=== PATIENT | female | born 1990 | race African-American/Black ===

== ENCOUNTER 2018-09-28 16:59 | Emergency (ER) | payer MEDICAID ==
[~2018-09-28] VITALS: Ht 162.6 cm; Wt 84.8 kg
[2018-09-28 17:20] VITALS: BP 115/73
[2018-09-28] MEDS: ALBUTEROL SULF 2.5 MG/0.5ML(0.5%) NEB SOLN NEB ONE (19:15)
[2018-09-28] MEDS: IPRATROPIUM BROM 0.5 MG/2.5ML INH SOL NEB ONE (19:15)
== END 2018-09-28 19:50 | disposition home or self-care (01) ==
LOC: ER 16:59
DX: J40 Bronchitis, not specified as acute or chronic (principal); M54.9 Dorsalgia, unspecified; R11.2 Nausea with vomiting, unspecified; R63.0 Anorexia; Z68.32 Body mass index [BMI] 32.0-32.9, adult
CPT/HCPCS: 71045; 94640; 99283; J7611; J7644

== ENCOUNTER 2018-11-08 03:55 | Emergency (ER) | payer MEDICAID ==
[~2018-11-08] VITALS: Ht 160 cm; Wt 81.6 kg
[2018-11-08 05:06] LABS: Urine Bacteria NONE SEEN /hpf (None Seen); Urine Blood Negative /uL (Negative); Urine Mucus FEW (None Seen); Urine Specific Gravity 1.023 (1.001-1.035); Urine WBC 16 /hpf (0 - 5)
[2018-11-08 05:31] LABS: Basophils # (auto) 0.1 uL; Basophils % (auto) 0.5 % (0.0-2.0); Eosinophils # (auto) 0.1 uL; Eosinophils % (auto) 0.8 % (0.0-7.0); Hematocrit 42.8 % (36.0-46.0); Hemoglobin 14.8 g/dL (12.2-16.2); Lymphocytes # (auto) 0.7 uL; Lymphocytes % (auto) 6.1 % (10.0-50.0); Mean Corpuscular Hemoglobin 30.5 pg (28.0-32.0); Mean Corpuscular Hgb Conc. 34.6 g/dL (32.0-36.0); Mean Corpuscular Volume 88.1 fL (80.0-100.0); Monocytes # (auto) 0.7 uL; Monocytes % (auto) 6.5 % (0.0-12.0); Neutrophils # (auto) 9.8 uL; Neutrophils % (auto) 86.1 % (37.0-80.0); Platelet Count (auto) 303 10^3/uL (140-450); Red Blood Cells 4.86 10^6/uL (4.0-5.20); Red Cell Distribution Width 13.9 % (11.8-14.3); White Blood Cell 11.4 10^3/uL (4.4-10.8)
[2018-11-08 05:38] LABS: Albumin 4.2 g/dL (3.4-5.0); Amylase 33 U/L (25-115); Anion Gap 8 (5-15); Blood Urea Nitrogen 7 mg/dL (7-18); Calcium 9.3 mg/dL (8.5-10.1); Carbon Dioxide 25 mmol/L (21-32); Chloride 103 mmol/L (98-107); Glucose 100 mg/dL (74-106); Lipase 63 U/L (73-393); Magnesium 1.9 mg/dL (1.6-2.6); Potassium 3.8 mmol/L (3.5-5.1); Sodium 136 mmol/L (136-145)
[2018-11-08 05:42] LABS: INR 0.95 (0.9-1.15); Partial Thromboplastin Time 29.1 sec (23.78-33.04); Prothrombin Time 10.2 sec (9.27-12.13)
[2018-11-08 05:43] LABS: Alanine Aminotransferase 19 U/L (13-56); Alkaline Phosphatase 66 U/L (45-117); Aspartate Aminotransferase 13 U/L (15-37); BUN/Creatinine Ratio 8.2; Bilirubin, Total 0.6 mg/dL (0.2-1.0); GFR African American > 60 mL/min; GFR Non-African American > 60 mL/min; Total Protein 8.6 g/dL (6.4-8.2)
[2018-11-08] MEDS ORDERED: MORPHINE SULFATE 10 MG/ML INJ 1ML SDV IV ONE (05:45)
[2018-11-08] MEDS ORDERED: ONDANSETRON HCL 4 MG/2 ML VIAL IV ONE (05:45)
[2018-11-08] MEDS ORDERED: SODIUM CHLORIDE 0.9% 1,000 ML IV ONE (07:44)
[2018-11-08] MEDS ORDERED: AZITHROMYCIN 500MG/ 250ML 250 ML IV ONE (07:45)
[2018-11-08] MEDS ORDERED: cefTRIAXone 1GM/50ML D5W 50 ML IV ONE (07:45)
[2018-11-08] MEDS ORDERED: KETOROLAC TROMETH 30 MG/ML 1ML VIAL IV ONE (08:00)
[2018-11-08] MEDS ORDERED: methylPREDNISolone SOD SUCC 125 MG/2 ML VL IV ONE (10:00)
[2018-11-08] MEDS ORDERED: ALBUTEROL SULF 2.5 MG/0.5ML(0.5%) NEB SOLN NEB ONE (10:00)
[2018-11-08] MEDS ORDERED: IPRATROPIUM BROM 0.5 MG/2.5ML INH SOL NEB ONE (10:00)
[2018-11-08 12:44] VITALS: BP 102/65
== END 2018-11-08 12:53 | disposition home or self-care (01) ==
LOC: ER 03:58
DX: J40 Bronchitis, not specified as acute or chronic (principal); N39.0 Urinary tract infection, site not specified
CPT/HCPCS: 36415; 71045; 80053; 81001; 81025; 82150; 83690; 83735; 85025; 85610; 85730; 87040; 94640; 96365; 96366; 96368; 96375; 99284; J0456; J0696; J1885; J2270; J2405; J2930; J7030; J7611; J7644

== ENCOUNTER 2018-11-09 09:36 | Inpatient (IN) | payer MEDICAID ==
[~2018-11-09] VITALS: Ht 160 cm; Wt 83.1 kg
[2018-11-09] MEDS ORDERED: ACETAMINOPHEN 325 MG TAB PO ONE (09:45)
[2018-11-09 10:09] LABS: Basophils # (auto) 0 uL; Basophils % (auto) 0.1 % (0.0-2.0); Eosinophils # (auto) 0 uL; Hematocrit 39.7 % (36.0-46.0); Hemoglobin 13.5 g/dL (12.2-16.2); Lymphocytes # (auto) 0.8 uL; Lymphocytes % (auto) 5.8 % (10.0-50.0); Mean Corpuscular Hemoglobin 30.4 pg (28.0-32.0); Mean Corpuscular Volume 89.2 fL (80.0-100.0); Monocytes # (auto) 1.3 uL; Monocytes % (auto) 9.7 % (0.0-12.0); Neutrophils % (auto) 84.4 % (37.0-80.0); Platelet Count (auto) 267 10^3/uL (140-450); Red Blood Cells 4.45 10^6/uL (4.0-5.20); Red Cell Distribution Width 14.4 % (11.8-14.3)
[2018-11-09 10:29] LABS: Albumin 3.7 g/dL (3.4-5.0); Anion Gap 7 (5-15); Blood Urea Nitrogen 10 mg/dL (7-18); Calcium 8.6 mg/dL (8.5-10.1); Carbon Dioxide 24 mmol/L (21-32); Chloride 106 mmol/L (98-107); Glucose 82 mg/dL (74-106); Magnesium 2.1 mg/dL (1.6-2.6); Potassium 3.6 mmol/L (3.5-5.1); Sodium 137 mmol/L (136-145)
[2018-11-09 10:37] LABS: Alanine Aminotransferase 21 U/L (13-56); Alkaline Phosphatase 60 U/L (45-117); Aspartate Aminotransferase 15 U/L (15-37); BUN/Creatinine Ratio 9.3; Bilirubin, Total 0.4 mg/dL (0.2-1.0); Total Protein 7.9 g/dL (6.4-8.2)
[2018-11-09 10:38] LABS: GFR African American > 60 mL/min; GFR Non-African American > 60 mL/min
[2018-11-09] MEDS ORDERED: SODIUM CHLORIDE 0.9% 1,000 ML IVB ONE (13:23)
[2018-11-09] MEDS ORDERED: KETOROLAC TROMETH 30 MG/ML 1ML VIAL IV ONE (15:00)
[2018-11-09 15:13] LABS: Urine Bacteria NONE SEEN /hpf (None Seen); Urine Blood Negative /uL (Negative); Urine Mucus FEW (None Seen); Urine WBC 1 /hpf (0 - 5)
[2018-11-09 16:12] LABS: INR 1.05 (0.9-1.15); Partial Thromboplastin Time 26.8 sec (23.78-33.04); Prothrombin Time 11.2 sec (9.27-12.13)
[2018-11-09 16:16] LABS: Magnesium 1.8 mg/dL (1.6-2.6)
[2018-11-09] MEDS ORDERED: MORPHINE SULFATE 4 MG/ML SYR/VIAL IV PRN ×2 (16:45)
[2018-11-09] MEDS ORDERED: ALBUTEROL SULF 2.5 MG/0.5ML(0.5%) NEB SOLN NEB PRN (16:45)
[2018-11-09] MEDS ORDERED: LORazepam 0.5 MG TAB PO PRN (16:45)
[2018-11-09] MEDS ORDERED: NITROGLYCERIN 0.4 MG SL TAB SL PRN (16:45)
[2018-11-09] MEDS ORDERED: TEMAZEPAM 15 MG CAP PO PRN (16:45)
[2018-11-09] MEDS: SODIUM CHLORIDE 0.9% 1,000 ML IV SCH (16:50)
[2018-11-09] MEDS ORDERED: OSELTAMIVIR 75 MG CAP PO ONE (17:45)
[2018-11-09] MEDS: DOXYCYCLINE 100MG/250ML 250 ML IV SCH (18:24)
[2018-11-09] MEDS: ALBUTEROL SULF 2.5 MG/0.5ML(0.5%) NEB SOLN NEB SCH (18:37)
[2018-11-09] MEDS ORDERED: ONDANSETRON HCL 4 MG/2 ML VIAL ONE (20:23)
[2018-11-09] MEDS: FAMOTIDINE 20 MG TAB PO SCH (21:59)
[2018-11-09] MEDS: ACETAMINOPHEN 500 MG TAB PO PRN (22:58)
[2018-11-10] MEDS: ALBUTEROL SULF 2.5 MG/0.5ML(0.5%) NEB SOLN NEB SCH ×4 (01:02→19:17)
--- NOTE | 2018-11-10 01:30 | NUR ---
Telemetry admit from ER ABRAHAM FU admitted to Telemetry unit after SBAR received. Patient oriented to RYANNE DENTON, primary RN, unit, room, bed, and unit policies regarding patient care and visiting hours. Patient now on continuous telemetry monitoring, tele box # 3 and telemetry reading on arrival to unit is NSR. Patient placed on bedside oxygen, weighed by bedscale and encouraged to call if they need something. All questions and concerns addressed, patient verbalized understanding.
[2018-11-10] MEDS: SODIUM CHLORIDE 0.9% 1,000 ML IV SCH ×3 (02:05→22:42)
[2018-11-10 03:53] VITALS: BP 107/52
[2018-11-10 05:00] VITALS: BP 103/60
[2018-11-10] MEDS ORDERED: SODIUM CHLORIDE 0.9 % NEB SOLN 3ML NEB ONE ×2 (05:35→11:12)
[2018-11-10 05:36] LABS: Basophils # (auto) 0 uL; Basophils % (auto) 0.5 % (0.0-2.0); Eosinophils # (auto) 0 uL; Hematocrit 36.8 % (36.0-46.0); Hemoglobin 12.3 g/dL (12.2-16.2); Lymphocytes # (auto) 1.1 uL; Lymphocytes % (auto) 17.1 % (10.0-50.0); Mean Corpuscular Hemoglobin 29.9 pg (28.0-32.0); Mean Corpuscular Hgb Conc. 33.5 g/dL (32.0-36.0); Mean Corpuscular Volume 89.4 fL (80.0-100.0); Monocytes % (auto) 15.7 % (0.0-12.0); Neutrophils # (auto) 4.3 uL; Neutrophils % (auto) 66.7 % (37.0-80.0); Platelet Count (auto) 211 10^3/uL (140-450); Red Blood Cells 4.12 10^6/uL (4.0-5.20); Red Cell Distribution Width 14.3 % (11.8-14.3); White Blood Cell 6.5 10^3/uL (4.4-10.8)
[2018-11-10] MEDS: DOXYCYCLINE 100MG/250ML 250 ML IV SCH ×2 (05:46→16:50)
[2018-11-10] MEDS: HYDROcodone-ACET 5/325MG TAB PO PRN ×2 (05:47→22:43)
--- NOTE | 2018-11-10 06:27 | NUR ---
IV removal and reinsertion Existing IV site pink and tender. DC'd with clean sterile technique, catheter fully intact. Pressure dressing applied to site. New IV access obtained, via clean sterile technique by inserting 22 gauge catheter at left hand. IV secured properly. No trauma to site. Patient tolerated well.
--- NOTE | 2018-11-10 07:27 | NUR ---
SHIFT END RESTING IN BED COMFORTABLY. PAIN MUCH BETTER AFTER PAIN MED GIVEN. BED IN LOWEST LOCKED POSITION W/CALL SILVA W/IN REACH. ENDORSED CARE TO DAY RN.
--- NOTE | 2018-11-10 07:50 | NUR ---
Opening Shift Note Assumed care of patient, awake and alert and orientedx4. No S/S of distress/SOB or pain. Instructed on POC and to call for assist PRN, will continue to monitor for changes.
[2018-11-10 08:59] VITALS: BP 116/74
[2018-11-10] MEDS: FAMOTIDINE 20 MG TAB PO SCH ×2 (09:51→21:08)
[2018-11-10] MEDS: ENOXAPARIN SOD 40 MG/0.4 ML SYRINGE SC SCH (09:51)
[2018-11-10] MEDS: OSELTAMIVIR 75 MG CAP PO SCH ×2 (09:51→21:09)
--- NOTE | 2018-11-10 09:55 | NUR ---
Dr Em at bedside.
[2018-11-10 12:03] VITALS: BP 121/73
[2018-11-10] MEDS: ACETAMINOPHEN 500 MG TAB PO PRN (16:44)
[2018-11-10] MEDS: PROMETHAZINE HCL 25 MG/ML 1ML IV PRN ×2 (16:49→22:42)
[2018-11-10 16:54] VITALS: BP 120/56
--- NOTE | 2018-11-10 18:31 | NUR ---
TEMP Temperature rechecked now at 98.7F. Will continue to monitor.
--- NOTE | 2018-11-10 19:10 | NUR ---
Patient care and report handed off to Virgen HUTTON.
[2018-11-10 22:00] VITALS: BP 101/60
--- NOTE | 2018-11-11 | NUR ---
Respiratory note: PT REFUSED MED NEB TX AT THIS TIME. PT STATED SHE WANTED TO SLEEP AND DID NOT NEED A TX AT THIS TIME. NO SIGNS OF ANY RESPIRATORY DISTRESS NOTED,
[2018-11-11 05:00] VITALS: BP 101/60
--- NOTE | 2018-11-11 05:01 | NUR ---
PATIENT STIVEN'D DOWN TO 36 AT 0010. DID NOT SUSTAIN BRADYCARDIA. UPON CHECKING ON HER, SHE SAID SHE FELT DIZZY. PATIENT THREW UP. VITALS WERE STABLE. 2L O2 ADMINISTERED VIA NASAL CANULA FOR COMFORT. PATIENTS HEART RATE RETURNED TO BASELINE W/IN A FEW MINUTES. WILL CONTINUE TO MONITOR.
[2018-11-11 05:52] LABS: Basophils # (auto) 0 uL; Basophils % (auto) 0.5 % (0.0-2.0); Eosinophils # (auto) 0 uL; Hematocrit 38.1 % (36.0-46.0); Hemoglobin 13.2 g/dL (12.2-16.2); Lymphocytes # (auto) 1.2 uL; Lymphocytes % (auto) 24.6 % (10.0-50.0); Mean Corpuscular Hemoglobin 30.6 pg (28.0-32.0); Mean Corpuscular Hgb Conc. 34.6 g/dL (32.0-36.0); Mean Corpuscular Volume 88.6 fL (80.0-100.0); Monocytes # (auto) 0.7 uL; Monocytes % (auto) 13.6 % (0.0-12.0); Neutrophils # (auto) 3.1 uL; Neutrophils % (auto) 61.3 % (37.0-80.0); Nucleated Red Blood Cells % 0.1 %; Platelet Count (auto) 219 10^3/uL (140-450); Red Cell Distribution Width 14.2 % (11.8-14.3)
[2018-11-11 05:54] LABS: Albumin 3.1 g/dL (3.4-5.0); Anion Gap 1 (5-15); Blood Urea Nitrogen 5 mg/dL (7-18); Calcium 8.2 mg/dL (8.5-10.1); Carbon Dioxide 30 mmol/L (21-32); Chloride 109 mmol/L (98-107); Glucose 92 mg/dL (74-106); Potassium 4.1 mmol/L (3.5-5.1); Sodium 140 mmol/L (136-145)
[2018-11-11 05:59] LABS: Alanine Aminotransferase 16 U/L (13-56); Alkaline Phosphatase 47 U/L (45-117); Aspartate Aminotransferase 15 U/L (15-37); BUN/Creatinine Ratio 6.7; Bilirubin, Total 0.2 mg/dL (0.2-1.0); GFR African American > 60 mL/min; GFR Non-African American > 60 mL/min; Total Protein 6.7 g/dL (6.4-8.2)
[2018-11-11] MEDS: DOXYCYCLINE 100MG/250ML 250 ML IV SCH ×2 (06:06→18:10)
[2018-11-11] MEDS: ACETAMINOPHEN 500 MG TAB PO PRN (06:07)
[2018-11-11] MEDS: ALBUTEROL SULF 2.5 MG/0.5ML(0.5%) NEB SOLN NEB SCH ×4 (06:50→20:01)
--- NOTE | 2018-11-11 06:50 | NUR ---
SHIFT END PATIENT RESTING IN BED. NO S/S OF DISTRESS. BED IN LOWEST LOCKED POSITION AND CALL SILVA W/IN REACH. CARE ENDORSED TO DAY RN.
--- NOTE | 2018-11-11 07:35 | NUR ---
OPENING NOTE Assumed care of patient from NOC RNVirgen. Patient awake and alert with no S/S of distress/SOB or pain. Isolation precautions in place. Bed in lowest, locked position with side rails up x2 and call light within reach. Instructed on POC and to call for assist PRN,verbalized understanding. Will continue to monitor for changes Q1hr and PRN.
[2018-11-11 08:44] VITALS: BP 108/73
[2018-11-11] MEDS: FAMOTIDINE 20 MG TAB PO SCH ×2 (11:36→22:00)
[2018-11-11] MEDS: SODIUM CHLORIDE 0.9% 1,000 ML IV SCH ×2 (11:36→18:44)
[2018-11-11] MEDS: ENOXAPARIN SOD 40 MG/0.4 ML SYRINGE SC SCH (11:37)
[2018-11-11] MEDS: OSELTAMIVIR 75 MG CAP PO SCH ×2 (11:37→22:00)
[2018-11-11 11:40] VITALS: BP 125/78
--- NOTE | 2018-11-11 12:00 | NUR ---
RESPIRATORY CULTURE Respiratory culture collected and sent to lab via bullet.
--- NOTE | 2018-11-11 15:05 | NUR ---
IV REMOVAL Patient c/o IV being tender/painful.IV DC'd with clean sterile technique, catheter fully intact. Pressure dressing applied to site. Attempted to insert new IV, 3x, but was unsuccessful secondary to rupturing of the vein. Patient has already gone through several IV's. Per agricultural equipment design engineer, Chris, a midline consult should be ordered.
--- NOTE | 2018-11-11 16:14 | NUR ---
Midline Placement to right cephalic at upper arm level. 18g/10cm in length. Blood return obtained. Flushes easily. Tolerated well. Primary RN notified. Lot#[id number].
[2018-11-11 16:26] VITALS: BP 116/79
[2018-11-11] MEDS: PROMETHAZINE HCL 25 MG/ML 1ML IV PRN (18:10)
--- NOTE | 2018-11-11 19:30 | NUR ---
OPENING NOTE Assumed care of patient from dayshift RN Patient awake and alert with no S/S of distress/SOB or pain. Family at bedside. Droplet isolation precautions in place. Bed in lowest, locked position with side rails up x2 and call light within reach. Instructed on POC and to call for assist PRN, patient verbalized understanding. Will continue to monitor for changes Q1hr and PRN.
--- NOTE | 2018-11-11 19:40 | NUR ---
CLOSING NOTE Endorsed care of patient to NOC Shannan HUTTON.
--- NOTE | 2018-11-11 20:43 | NUR ---
RT NOTE PT WAS SEEN BY RT FOR HHN TX. PT TOLERATES WELL VIA MASK. NO ADVERSE REACTION NOTED. PT COMPLAINS OF ROOM BEING HOT, THERMOSTAT APPEARS BROKEN. JULIETH STEVE STATES SHE WILL LOOK FOR A FAN FOR PT. Addendum: 11/11/18 at 2045 by Joanie Gonzalez RT Amended: Links added.
[2018-11-11 22:00] VITALS: BP 126/85
--- NOTE | 2018-11-11 22:00 | NUR ---
Property Patient informed RN that laptop had been brought from home. Patient's property belonging form updated to indicate this.
[2018-11-12] MEDS: ALBUTEROL SULF 2.5 MG/0.5ML(0.5%) NEB SOLN NEB SCH ×3 (00:34→11:19)
--- NOTE | 2018-11-12 00:35 | NUR ---
RT NOTE -PT WAS SEEN BY RT FOR HHN TX. BEFORE PT WAS AWAKENED PTs BRENNEN RUIZ INFORMED RT THAT PT DID NOT WANT TX AT THIS TIME IF SLEEPING. PT IS COVERED FROM HEAD TO TOE WITH BLANKET AND APPEARS TO BE SLEEPING COMFORTABLY. BRENNEN RUIZ WILL CALL IF TX NEEDED BEFORE NEXT SCHEDULED ROUNDS. CONT ORDERED
[2018-11-12] MEDS: SODIUM CHLORIDE 0.9% 1,000 ML IV SCH (04:42)
[2018-11-12 05:00] VITALS: BP 103/76
--- NOTE | 2018-11-12 05:00 | NUR ---
Temperature Temperature assessed by AUDIOVISUAL TECHNICIAN Pattie to be 100.2 degrees Fahrenheit. Door left open to cool room and blankets removed. RN reassessed temperature and found it to be 98.7 degrees Fahrenheit. No complaints or needs at this time. No s/s of distress. Will continue to monitor.
[2018-11-12] MEDS: DOXYCYCLINE 100MG/250ML 250 ML IV SCH (05:30)
--- NOTE | 2018-11-12 06:14 | NUR ---
RT NOTE: WENT TO PTS ROOM TO ADMINISTER BREATHING TX, PT STATED THAT SHE WAS DOING FINE AND DID NOT NEED A TX AT THIS TIME. PT AWARE TO CALL IF HAVING ANY SOB, WILL CONTINUE TO MONITOR PT. HR 89, SPO2 97% ON RA, RR 16, BREATH SOUNDS CLEAR.
--- NOTE | 2018-11-12 07:15 | NUR ---
Closing Note Patient lying in bed, awake and alert. No s/s of distress. Bed in lowest locked position, side rails up x2, call light within reach. Care endorsed to dayshift RN.
--- NOTE | 2018-11-12 07:22 | NUR ---
OPENING NOTE Assumed care of patient from NOC RNShannan. Patient awake and alert with no S/S of distress/SOB or pain. Bed in lowest, locked position with side rails up x2 and call light within reach. Instructed on POC and to call for assist PRN, verbalized understanding. Will continue to monitor for changes Q1hr and PRN.
[2018-11-12] MEDS: ACETAMINOPHEN 500 MG TAB PO PRN (08:28)
[2018-11-12 09:26] VITALS: BP 106/68
[2018-11-12] MEDS: OSELTAMIVIR 75 MG CAP PO SCH (09:44)
[2018-11-12] MEDS: FAMOTIDINE 20 MG TAB PO SCH (09:44)
[2018-11-12] MEDS: ENOXAPARIN SOD 40 MG/0.4 ML SYRINGE SC SCH (09:45)
[2018-11-12 12:53] VITALS: BP 115/98
--- NOTE | 2018-11-12 13:15 | NUR ---
DISCHARGE Discharge instructions given as ordered. Encouraged to follow up with PMD as instructed. All questions and concerns addressed. Patient verbalized understanding. Medication reconciliation form completed and copy given to patient. Midline removed with catheter intact and pressure dressing applied. Telemetry unit returned to [facility]. Patient ambulated to vehicle with all personal belongings, accompanied by family member. No distress noted at time of departure.
== END 2018-11-12 13:15 | disposition home or self-care (01) | DRG 720 ==
LOC: ER 09:36 → TELE 16:44 → TELE-EAST 23:45
PROVIDERS: ADMIT Internal Medicine; ATTEND Internal Medicine
DX: A41.9 Sepsis, unspecified organism (principal); J10.00 Influenza due to other identified influenza virus with unspecified type of pneumonia; E88.09 Other disorders of plasma-protein metabolism, not elsewhere classified; J40 Bronchitis, not specified as acute or chronic; N39.0 Urinary tract infection, site not specified; Z80.1 Family history of malignant neoplasm of trachea, bronchus and lung; Z82.49 Family history of ischemic heart disease and other diseases of the circulatory system; Z83.3 Family history of diabetes mellitus
CPT/HCPCS: 36415; 71045; 74176; 80053; 81001; 83605; 83735; 84484; 84702; 85025; 85610; 85730; 87040; 87070; 87086; 87205; 87804; 93005; 94640; 94761; 96361; 96365; 96375; G0378; J1885; J2405; J3490